=== PATIENT | male | born 1960 | race Caucasian/White ===

== ENCOUNTER → 2024-06-30 13:00 | Outpatient (CLI) | payer OTHER, SELFPAY ==
--- NOTE | 2024-06-30 13:05 | DI.MRI.S_ITS ---
PROCEDURE: MR LUMBAR SPINE WO CON INDICATIONS: Spinal stenosis, lumbar region with neurogenic cla TECHNIQUE: Noncontrast sagittal T1 spin echo and T2 fast echo, sagittal STIR, and T2 fast spin echo through the lumbar spine. In cases with scoliosis, additional coronal T2 fast spin echo may be performed. COMPARISON: None. FINDINGS: Image quality: Diagnostic Alignment and Curvature: There is normal bony alignment. Bone Marrow: Marrow is of normal overall signal. No acute vertebral body compression fractures. Spinal Cord: Conus medullaris terminates at the L1 level. Visualized cord demonstrates normal signal and size. Paraspinous Soft Tissues: No paravertebral masses. T12-L1: Bilateral facet arthropathy. No significant neuroforaminal or spinal canal stenosis. L1-L2: Bilateral facet arthropathy. No significant neuroforaminal or spinal canal stenosis. L2-L3: Moderate bilateral facet arthropathy. Small symmetric disc bulge. Epidural lipomatosis. Mild spinal canal stenosis. Mild bilateral neuroforaminal stenosis. L3-L4: Moderate bilateral facet arthropathy. Thickening of the ligamentum flavum. Epidural lipomatosis. Moderate symmetric disc bulge. Mild-moderate spinal canal stenosis. Mild-moderate bilateral neuroforaminal stenosis. L4-L5: Mild degenerative endplate changes and disc space loss. Moderate bilateral facet arthropathy. Epidural lipomatosis. Moderate symmetric disc bulge. Minimal spinal canal stenosis. Moderate right greater than left bilateral neuroforaminal stenosis. L5-S1: Mild right and moderate left bilateral facet arthropathy. Small symmetric disc bulge. Degenerative endplate changes and disc space loss. No spinal canal stenosis. Mild-moderate left and mild right bilateral neuroforaminal stenosis. IMPRESSION: Lumbar spine without acute abnormalities. Multilevel, multifactorial lumbar spondylosis as described above by vertebral body level. Findings are most pronounced at L3-4 and L4-5. Dictated by: Martin Espino M.D. on 06/30/2024 at 16:55 Approved by: Martin Espino M.D. on 06/30/2024 at 17:26
== END ==
PROVIDERS: PCP Nurse Practitioner Family; Referring Provider Physical Medicine & Rehabilitation; Visit Provider Physical Medicine & Rehabilitation
DX: M48.062 Spinal stenosis, lumbar region with neurogenic claudication (principal); M47.816 Spondylosis without myelopathy or radiculopathy, lumbar region; M47.817 Spondylosis without myelopathy or radiculopathy, lumbosacral region
CPT/HCPCS: 72148

== ENCOUNTER → 2024-11-29 14:33 | Outpatient (CLI) | payer OTHER, SELFPAY ==
--- NOTE | 2024-11-29 14:35 | DI.RAD.S_ITS ---
PROCEDURE: XR LUMBAR SPINE MIN 4V INDICATIONS: BACK PAIN TECHNIQUE: 7 views of the lumbar spine were acquired, including bilateral oblique views. COMPARISON: None. FINDINGS: Bones: 5 nonrib-bearing vertebrae are present. There is normal bony alignment. No vertebral body compression fractures. No suspicious bony lesions. Disc space narrowing and hypertrophic facet joints noted particularly in the lower spine. No evidence of instability Soft tissues: Overlying bowel gas pattern is normal. No suspicious soft tissue calcifications. Oblique images: No pars defects. IMPRESSION: Degenerative disc disease and arthropathy without instability Approved by: Chris Dallas M.D. on 11/29/2024 at 18:14
== END ==
PROVIDERS: PCP Nurse Practitioner Family; Referring Provider Physical Medicine & Rehabilitation; Visit Provider Physical Medicine & Rehabilitation
DX: M51.369 Other intervertebral disc degeneration, lumbar region without mention of lumbar back pain or lower extremity pain (principal); M47.816 Spondylosis without myelopathy or radiculopathy, lumbar region; M54.9 Dorsalgia, unspecified
CPT/HCPCS: 72110

== ENCOUNTER 2024-12-14 09:28 | Outpatient (CLI) | payer OTHER, SELFPAY ==
[2024-12-14] VITALS (10 sets, daily range): BP systolic 124–149; BP diastolic 65–86; PULSE 16–90; RESP 14–16; TEMP 36.4; O2SAT 93–97
[2024-12-14] MEDS: MIDAZOLAM 2 MG/2 ML VIAL IV (10:58)
[2024-12-14] MEDS: LIDOCAINE 1% 20 ML 5 ML INJ (11:04)
[2024-12-14] MEDS: BUPIVACAINE 0.5% (PF) 10 ML VIAL 5 ML INJ (11:04)
[2024-12-14] MEDS: iopamidoL 15 ML VIAL 3 ML INJ (11:05)
--- NOTE | 2024-12-14 11:15 | PM.PROC.IR.1 ---
Date/Time/Diagnoses Date of procedure: 12/14/24 Time of procedure: 11:16 Pre-procedure diagnosis: FACET ARTHROPATHY Post-procedure diagnosis: same Procedure Notes Procedure: 1. BILATERAL L3, L4 AND L5 DIAGNOSTIC MB BLOCKS Indications: Miguelangel is referred by STRATEGIC ACCOUNT MANAGERDavid Shahid for treatment of Bilateral Axial LBP. Physician: Mati Marie Total Fluoroscopy time (seconds): 11 Total sedation minutes: 12 Complications: none Procedure in detail & Post-procedure care: DESCRIPTION OF PROCEDURE Fluoroscopically guided, contrast-controlled bilateral L3, L4 AND L5 medial branch blocks with 0.5cc of 0.5% Marcaine. Following review of allergy and review of potential side effects and complications, including, but not necessarily limited to, infection, allergic reaction, local tissue breakdown, nerve injury, paralysis, stroke and possible , the patient indicated that the patient understood and agreed to proceed. An informed consent document was signed by the patient, witnessed by a nurse, and placed in the patient's chart. After review of previous anaesthesic history and IV conscious sedation the patient was deemed safe to proceed with today's procedure with IV conscious sedation as ASA class II designation. Safety time-out was performed to confirm patient ID, procedure to be performed and site of procedure. IV sedation was accomplished with a combination of 2mg of Versed was administered by the RN after DO order, titrated to patient comfort during the course of the procedure while the patient remained responsive to all verbal commands In the prone position, following sterile prep and drape of the lumbar region, the right L3, L4 AND L5 anatomical location of the medial branch of the dorsal ramus was identified fluoroscopically. Subsequently an anesthetic skin wheal using 1% lidocaine solution was initiated at each of the anatomical spots. Subsequently then a 22-gauge 3.5-inch spinal needle was atraumatically introduced and advanced under fluoroscopic guidance at each of the corresponding sites at the right L3, L4 and L5 MB. After negative aspiration, 0.2cc of Isovue 200 was injected, confirming placement without vascular or intrathecal uptake. Subsequently then 0.5cc of 0.5% Marcaine solution was injected at each of the corresponding sites at the right L3, L4 and L5 medial branch locations. The identical procedure was replicated on the left. The patient tolerated the procedure well without signs or symptoms of complications. The patient tolerated the procedure well without signs or symptoms of complications prior to transfer to the recovery area continued monitoring without incident. Post-procedure, the patient was monitored initiating provocative activities to measure the amount of relief from block of the facetogenic pain. The patient reported a VAS of 7 prior to the procedure and a post-procedure VAS of 1. It has been a pleasure to assist in the diagnostic and therapeutic care of your patient. POST OP INSTRUCTIONS The patient was provided with a Pain Log to complete over the next several hours and subsequent days prior to the patient's follow up with the ordering physician. If the patient has telephone surveyor relief to the solution applied, then they may be a candidate for medial branch rhizotomy. The patient is aware, was provided, once again, with a Pain Log and will follow up with the referring physician for review and clinical correlation
== END 2024-12-14 11:40 | disposition home or self-care (01) ==
LOC: RAD 09:28
PROVIDERS: PCP Nurse Practitioner Family; Referring Provider Physical Medicine & Rehabilitation; Visit Provider Physical Medicine & Rehabilitation
DX: M47.816 Spondylosis without myelopathy or radiculopathy, lumbar region (principal); M48.062 Spinal stenosis, lumbar region with neurogenic claudication
CPT/HCPCS: 64493; 64494; 99152; J2250

== ENCOUNTER 2025-05-31 12:46 | Outpatient (CLI) | payer MEDICARE, OTHER, SELFPAY ==
[2025-05-31] VITALS (8 sets, daily range): BP systolic 107–132; BP diastolic 61–81; PULSE 67–86; RESP 14–18; TEMP 36.7; O2SAT 92–96
[2025-05-31] MEDS: MIDAZOLAM 2 MG/2 ML VIAL IV (14:36)
[2025-05-31] MEDS: LIDOCAINE 2% INJ MDV 20ML 5 ML INJ (14:38)
[2025-05-31] MEDS: LIDOCAINE 1% 20 ML 5 ML INJ (14:38)
--- NOTE | 2025-05-31 14:52 | P.PCN_ITS ---
Date/Time/Diagnoses Date of procedure: 05/31/25 Time of procedure: 14:52 Pre-procedure diagnosis: 1. FACET ARTHROPATHY Post-procedure diagnosis: same Procedure Notes Procedure: 1. BILATERAL L3, L4 AND L5 DIAGNOSTIC MB BLOCKS Indications: Miguelangel is referred by ERIKA Shahid for treatment of Bilateral Axial LBP. Physician: Mati Marie Total Fluoroscopy time (seconds): 9 Total sedation minutes: 14 Complications: none Procedure in detail & Post-procedure care: DESCRIPTION OF PROCEDURE Fluoroscopically guided, contrast-controlled bilateral L3, L4 and L5 medial branch blocks with 0.5cc of 2% Lidocaine. Following review of allergy and review of potential side effects and complications, including, but not necessarily limited to, infection, allergic reaction, local tissue breakdown, nerve injury, paralysis, stroke and possible , the patient indicated that the patient understood and agreed to proceed. An informed consent document was signed by the patient, witnessed by a nurse, and placed in the patient's chart. After review of previous anaesthesic history and IV conscious sedation the patient was deemed safe to proceed with today's procedure with IV conscious sedation as ASA class II designation. Safety time-out was performed to confirm patient ID, procedure to be performed and site of procedure. IV sedation was accomplished with a combination of 2mg of Versed was administered by the RN after DO order, titrated to patient comfort during the course of the procedure while the patient remained responsive to all verbal commands In the prone position, following sterile prep and drape of the lumbar region, the right L3, L4 and L5 anatomical location of the medial branch of the dorsal ramus was identified fluoroscopically. Subsequently an anesthetic skin wheal using 1% lidocaine solution was initiated at each of the anatomical spots. Subsequently then a 22-gauge 3.5-inch spinal needle was atraumatically introduced and advanced under fluoroscopic guidance at each of the corresponding sites at the right L3, L4 and L5 MB. After negative aspiration, 0.2cc of Isovue 200 was injected, confirming placement without vascular or intrathecal uptake. Subsequently then 0.5cc of 2% Lidocaine solution was injected at each of the corresponding sites at the right L3, L4 and L5 medial branch locations. The identical procedure was replicated on the left. The patient tolerated the proce dure well without signs or symptoms of complications. The patient tolerated the procedure well without signs or symptoms of complications prior to transfer to the recovery area continued monitoring without incident. Post-procedure, the patient was monitored initiating provocative activities to measure the amount of relief from block of the facetogenic pain. The patient reported a VAS of 7 prior to the procedure and a post-procedure VAS of 1. It has been a pleasure to assist in the diagnostic and therapeutic care of your patient. POST OP INSTRUCTIONS The patient was provided with a Pain Log to complete over the next several hours and subsequent days prior to the patient's follow up with the ordering physician. If the patient has material planning analyst relief to the solution applied, then they may be a candidate for medial branch rhizotomy. The patient is aware, was provided, once again, with a Pain Log and will follow up with the referring physician for review and clinical correlation
== END 2025-05-31 15:10 | disposition home or self-care (01) ==
LOC: RAD 12:48
PROVIDERS: PCP Nurse Practitioner Family; Referring Provider Nurse Practitioner Family; Visit Provider Physical Medicine & Rehabilitation
DX: M47.816 Spondylosis without myelopathy or radiculopathy, lumbar region (principal)
CPT/HCPCS: 64493; 64494; 99152; J2250